=== PATIENT | male | born 1990 | race Two or more races ===

== ENCOUNTER 2018-09-04 07:16 | Emergency (ER) | payer OTHER ==
[2018-09-04 07:26] VITALS: BMI 20.9
[2018-09-04] MEDS ORDERED: METOCLOPRAMIDE HCL INJECTION 10 MG/2 ML VIAL IVPB ONE (07:59)
[2018-09-04] MEDS ORDERED: SODIUM CHLORIDE 0.9% 1000 ML INFUS.BAG IV ONE (07:59)
[2018-09-04] MEDS ORDERED: METOCLOPRAMIDE HCL INJECTION 10 MG/2 ML VIAL ONE (08:18)
[2018-09-04 08:21] LABS: BASO % 0.1 % (0-2.0); HEMATOCRIT 45.5 % (35.4-49); LYMPH % 3.1 % (8-40); MCH 30.4 pg (25.7-33.7); MCHC 35.2 g/dl (32.0-35.9); MEAN CELL VOLUME 86.5 fl (80-96); MEAN PLT VOLUME 8.1 fl (7.5-11.1); MONO % 4.3 % (3.8-10.2); NEUT % 92.5 % (42.8-82.8); PLATELET COUNT 280 K/MM3 (134-434); RBC 5.26 M/mm3 (4.00-5.60); RDW 13.7 % (11.9-15.9)
[2018-09-04] MEDS ORDERED: ONDANSETRON 4 MG/2 ML VIAL IVPUSH ONE (08:43)
[2018-09-04] MEDS ORDERED: morphine CARPU-JECT 4 MG/1 ML DISP.SYRIN IVPUSH ONE (08:43)
--- NOTE | 2018-09-04 08:43 | PDOC ---
History of Present Illness - General Chief Complaint: Nausea/Vomiting Stated Complaint: VOMITING Time Seen by Provider: 09/04/18 07:37 History Source: Patient Exam Limitations: No Limitations - History of Present Illness Initial Comments: 09/04/18 08:44 CHIEF COMPLAINT: Vomiting/diarrhea HISTORY OF PRESENT ILLNESS: This is an otherwise healthy 27-year-old male who presents ambulatory to the emergency department complaining of vomiting, diarrhea, and abdominal pain since morning. He reports approximately 10 episodes each of vomiting and diarrhea. He denies hematemesis or hematochezia, he denies fevers, denies dysuria. He has not traveled or eating in a restaurant recently, but does report eating heavily for the holidays. He does not have any sick contacts. Prior to my evaluation, he was given Reglan and Benadryl for nausea, but still complains of abdominal pain Vital signs on arrival are all within normal limits. REVIEW OF SYSTEMS: GENERAL/CONSTITUTIONAL: No fever or chills. No weakness. No weight change. HEAD, EYES, EARS, NOSE AND THROAT: No change in vision. No ear pain or discharge. No sore throat. CARDIOVASCULAR: No chest pain or palpitations. RESPIRATORY: No cough, wheezing, or shortness of breath. GASTROINTESTINAL: See HPI. GENITOURINARY: No dysuria, frequency, or change in urination. MUSCULOSKELETAL: No joint or muscle swelling or pain. No neck or back pain. SKIN: No rash or easy bruising. NEUROLOGIC: No headache, vertigo, loss of consciousness, or loss of sensation. PSYCHIATRIC: No depression or anxiety. ENDOCRINE: No increased thirst. No abnormal weight change. HEMATOLOGIC/LYMPHATIC: No anemia, easy bleeding, or history of blood clots. ALLERGIC/IMMUNOLOGIC: No hives or skin allergy. No latex allergy. PHYSICAL EXAM: GENERAL: The patient is awake, alert, and fully oriented, in no acute distress. HEAD: Normal with no signs of trauma. ENT: Pupils equal, round and reactive to light, extraocular movements intact, sclera anicteric, conjunctiva clear. Neck supple. Black areas on tongue. LUNGS: Clear to auscultation bilaterally. Normal excursion. No respiratory distress or use of accessory muscles. CV: RRR, S1/S2, no MRG. Cap refill < 2 sec. ABDOMEN: Soft, non-distended, mildly tender to deep palpation in LLQ. EXTREMITIES: Normal range of motion, no edema. NEUROLOGICAL: Normal speech, normal gait. CN II-XII grossly intact. PSYCH: Normal mood, normal affect. SKIN: Warm, dry, normal turgor, no rashes or lesions noted. 09/04/18 08:46 Past History - Past Medical History Allergies/Adverse Reactions: Allergies Allergy/AdvReac Type Severity Reaction Status Date / Time No Known Allergies Allergy Verified 09/04/18 07:24 Home Medications: Ambulatory Orders Ondansetron [Zofran Odt -] 4 mg SL TID PRN #21 od.tablet 09/04/18 COPD: No - Immunization History Immunization Up to Date: No - Suicide/Smoking/Psychosocial Hx Smoking History: Unknown if ever smoked Have you smoked in the past 12 months: No Hx Alcohol Use: No Drug/Substance Use Hx: No Substance Use Type: None *Physical Exam - Vital Signs Last Vital Signs Temp Pulse Resp BP Pulse Ox 98.4 F 89 16 123/70 99 09/04/18 07:24 09/04/18 07:24 09/04/18 07:24 09/04/18 07:24 09/04/18 07:24 Moderate Sedation - Procedure Monitoring Vital Signs: Procedure Monitoring Vital Signs Temperature 98.4 F 09/04/18 07:24 Pulse Rate 89 09/04/18 07:24 Respiratory Rate 16 09/04/18 07:24 Blood Pressure 123/70 09/04/18 07:24 O2 Sat by Pulse Oximetry (%) 99 09/04/18 07:24 ED Treatment Course - LABORATORY CBC & Chemistry Diagram: 09/04/18 08:15 09/04/18 08:15 - ADDITIONAL ORDERS Additional order review: 09/04/18 08:15 RBC 5.26 MCV 86.5 MCHC 35.2 RDW 13.7 MPV 8.1 Neutrophils % 92.5 H Lymphocytes % 3.1 L Monocytes % 4.3 Eosinophils % 0.0 Basophils % 0.1 - Medications Given in the ED: ED Medications Discontinued Medications Generic Name Dose Route Start Last Admin Trade Name Freq PRN Reason Stop Dose Admin Diphenhydramine HCl 25 mg 09/04/18 07:59 09/04/18 08:24 Benadryl Injection - IVPB 09/04/18 08:00 25 mg ONCE ONE Administration Metoclopramide HCl 10 mg 09/04/18 07:59 09/04/18 08:24 Reglan Injection - IVPB 09/04/18 08:00 10 mg ONCE ONE Administration Sodium Chloride 1,000 ml 09/04/18 07:59 09/04/18 08:24 Normal Saline - IV 09/04/18 08:00 1,000 ml ONCE ONE Administration Medical Decision Making - Medical Decision Making 09/04/18 08:48 A/P: 27-year-old male with vomiting/diarrhea and left lower quadrant abdominal pain. 1. Labs including CBC, CMP, lipase, UA 2. IV fluids 3. Add Zofran for nausea, morphine for persistent pain 4. Repeat abdominal exam 09/04/18 09:45 Patient re-examined and still with 8/10 LLQ pain. WBC is 17.0. Will obtain CTAP. 09/04/18 11:29 CT demonstrates no acute pathology. Pain improved, patient tolerating PO. *DC/Admit/Observation/Transfer Diagnosis at time of Disposition: Vomiting and diarrhea Abdominal pain Qualifiers: Abdominal location: left lower quadrant Qualified Code(s): R10.32 - Left lower quadrant pain - Discharge Dispostion Disposition: HOME Condition at time of disposition: Improved Decision to Admit order: No - Prescriptions Prescriptions: Ondansetron [Zofran Odt -] 4 mg SL TID PRN #21 od.tablet PRN Reason: nausea/vomiting - Referrals Referrals: Cesar Escudero MD [Primary Care Provider] - - Patient Instructions Printed Discharge Instructions: DI for Viral Gastroenteritis -- Adult, [place] Diet Additional Instructions: -Rest and stay well-hydrated. -Slowly advance your diet (instructions enclosed). -Follow up with Dr. Escudero early next week. -Return here if your pain is worsening, if you are unable to keep down fluids, or for any other concerning symptoms. - Post Discharge Activity
[2018-09-04 08:49] LABS: ALBUMIN 4.6 g/dl (3.4-5.0); ALK PHOS 73 U/L (45-117); ANION GAP 9 MMOL/L (8-16); BILIRUBIN,TOTAL 0.8 mg/dL (0.2-1); BLOOD UREA NITROGEN 17 mg/dL (7-18); CALCIUM 9.7 mg/dL (8.5-10.1); CHLORIDE 103 mmol/L (98-107); CO2 25 mmol/L (21-32); CREATININE 1.3 mg/dL (0.55-1.3); GLUCOSE,RANDOM 124 mg/dL (74-106); POTASSIUM 4.8 mmol/L (3.5-5.1); SGOT/AST 18 U/L (15-37); SGPT/ALT 23 U/L (13-61); SODIUM 136 mmol/L (136-145); TOT PROT 8.6 g/dl (6.4-8.2)
[2018-09-04] MEDS ORDERED: ONDANSETRON 4 MG/2 ML VIAL ONE (08:51)
[2018-09-04] MEDS ORDERED: morphine SULFATE 4 MG/ML VIAL ONE (08:51)
[2018-09-04 09:49] LABS: ACANTHOCYTES 1+; ANISOCYTOSIS 1+; MACROCYTOSIS 0; OVALOCYTE 1+; PLATELET ESTIMATE NORMAL; TEAR DROP CELLS 1+
[2018-09-04 09:59] LABS: LIPASE 99 U/L (73-393)
[2018-09-04 12:00] VITALS: BP 132/72; PULSE 65; TEMP 982
== END 2018-09-04 11:58 | disposition home or self-care (01) ==
LOC: JER 07:16
PROC: 3E033NZ Introduction of Analgesics, Hypnotics, Sedatives into Peripheral Vein, Percutaneous Approach (ICD-10-PCS; principal; 2018-09-04)
PROC: 3E033GC Introduction of Other Therapeutic Substance into Peripheral Vein, Percutaneous Approach (ICD-10-PCS; 2018-09-04)
PROC: 3E033GC Introduction of Other Therapeutic Substance into Peripheral Vein, Percutaneous Approach (ICD-10-PCS; 2018-09-04)
PROC: 3E033GC Introduction of Other Therapeutic Substance into Peripheral Vein, Percutaneous Approach (ICD-10-PCS; 2018-09-04)
DX: A08.4 Viral intestinal infection, unspecified (principal); B97.89 Other viral agents as the cause of diseases classified elsewhere
CPT/HCPCS: 36415; 74177-TC; 80053; 83690; 85025; 99281-25; J7030

== ENCOUNTER 2018-10-05 12:47 | Emergency (ER) | payer OTHER ==
[2018-10-05 13:09] VITALS: BP 125/70; PULSE 90; TEMP 100.1; BMI 18.7
[2018-10-05] MEDS ORDERED: ACETAMINOPHEN 325 MG TABLET (FP) PO ONE (14:02)
[2018-10-05] MEDS ORDERED: ACETAMINOPHEN 325 MG TABLET (FP) ONE (14:03)
--- NOTE | 2018-10-05 14:12 | PDOC ---
History of Present Illness - General Chief Complaint: Cold Symptoms Stated Complaint: VOMIT / FEVER Time Seen by Provider: 10/05/18 13:17 History Source: Patient - History of Present Illness Timing/Duration: reports: other Past History - Past Medical History Allergies/Adverse Reactions: Allergies Allergy/AdvReac Type Severity Reaction Status Date / Time No Known Allergies Allergy Verified 09/04/18 07:24 Home Medications: Ambulatory Orders Ondansetron [Zofran Odt -] 4 mg SL TID PRN #21 od.tablet 09/04/18 COPD: No Dialysis: No Hypercholesterolemia: No - Surgical History Cholecystectomy: No - Immunization History Immunization Up to Date: No - Suicide/Smoking/Psychosocial Hx Smoking History: Unknown if ever smoked Have you smoked in the past 12 months: No Information on smoking cessation initiated: No Hx Alcohol Use: No Drug/Substance Use Hx: No Substance Use Type: None Review of Systems - Review of Systems Constitutional: Yes: Fever Respiratory: Yes: Cough. No: Shortness of Breath Cardiac (ROS): No: Chest Pain ABD/GI: Yes: Vomiting. No: Diarrhea, Abdominal cramping *Physical Exam - Vital Signs Last Vital Signs Temp Pulse Resp BP Pulse Ox 100.1 F H 90 18 125/70 99 10/05/18 13:06 10/05/18 13:06 10/05/18 13:06 10/05/18 13:06 10/05/18 13:06 - Physical Exam Comments: 10/05/18 14:21 reid mildly uncomfortable General Appearance: Yes: Appropriately Dressed HEENT: positive: Normal ENT Inspection, Normal Voice, TMs Normal, Pharynx Normal. negative: Scleral Icterus (R), Scleral Icterus (L) Neck: positive: Supple. negative: Lymphadenopathy (R), Lymphadenopathy (L) Respiratory/Chest: positive: Lungs Clear, Normal Breath Sounds. negative: Respiratory Distress Cardiovascular: positive: Regular Rate, S1, S2 Gastrointestinal/Abdominal: positive: Soft. negative: Tender Integumentary: positive: Dry, Warm Neurologic: positive: Fully Oriented, Alert, Normal Mood/Affect Moderate Sedation - Procedure Monitoring Vital Signs: Procedure Monitoring Vital Signs Temperature 100.1 F H 10/05/18 13:06 Pulse Rate 90 10/05/18 13:06 Respiratory Rate 18 10/05/18 13:06 Blood Pressure 125/70 10/05/18 13:06 O2 Sat by Pulse Oximetry (%) 99 10/05/18 13:06 ED Treatment Course - RADIOLOGY Radiology Studies Ordered: Category Date Time Status CHEST PA & LAT [RAD] Stat Radiology 10/05/18 14:02 Ordered Medical Decision Making - Medical Decision Making 10/05/18 14:12 27 yo M, denies pmhx, here w/ dry cough, n/v, fever and malaise x 3-4 days. Sxs started while incarcerated per pt. No hemoptysis, SOB, CP or body aches See exam Viral illness R/o flu/strep/pna given recent incarceration -dose of tylenol for low grade fever 10/05/18 14:44 CXR, flu and strep neg. Dc w/ supportive tx *DC/Admit/Observation/Transfer Diagnosis at time of Disposition: Viral illness - Discharge Dispostion Disposition: HOME Condition at time of disposition: Stable - Referrals Referrals: Cesar Escudero MD [Primary Care Provider] - - Patient Instructions Printed Discharge Instructions: DI for Viral Syndrome Additional Instructions: Your chest x-ray fluid and strep test were negative. You have a viral illness that should improve in time. In the meanwhile, rest, drink plenty of fluids and take Motrin or Tylenol as needed for pain and/or fever - Post Discharge Activity
== END 2018-10-05 14:51 | disposition home or self-care (01) ==
LOC: JERFT 12:47
DX: B34.9 Viral infection, unspecified (principal)
CPT/HCPCS: 71046-TC-FY; 87070; 87804; 87880; 99281-25

== ENCOUNTER 2018-11-24 14:30 | Emergency (ER) | payer OTHER ==
[2018-11-24 15:02] VITALS: BP 115/76; PULSE 83; TEMP 98.3; BMI 19.8
--- NOTE | 2018-11-24 15:03 | PDOC ---
Rapid Medical Evaluation Chief Complaint: Sore Throat Time Seen by Provider: 11/24/18 15:00 Medical Evaluation: Allergies Allergy/AdvReac Type Severity Reaction Status Date / Time No Known Allergies Allergy Verified 11/24/18 15:00 11/24/18 15:01 I have performed a brief in-person evaluation of this patient. The patient presents with a chief compliant of sorethroat x 2-3 days Complaining of pain with swallowing Pertinent physical exam findings NAD +enlarged, erythematous tonsils, + exudate unlabored breathing I have ordered the following rapid strep, throat culture The patient will proceed to the ED for further evaluation. Discharge Disposition - Diagnosis Sorethroat - Referrals - Patient Instructions - Post Discharge Activity
[2018-11-24] MEDS ORDERED: DEXAMETHASONE LIQUID 0.5 MG/5 ML 240 ML BULK BOTTLE PO ONE (15:34)
--- NOTE | 2018-11-24 15:34 | PDOC ---
History of Present Illness - General Chief Complaint: Sore Throat Stated Complaint: SORE THROAT Time Seen by Provider: 11/24/18 15:00 - History of Present Illness Initial Comments: 11/24/18 15:33 28-year-old male without comorbidities presents for evaluation of sore throat fever chills night sweats 3 days Past History - Past Medical History Allergies/Adverse Reactions: Allergies Allergy/AdvReac Type Severity Reaction Status Date / Time No Known Allergies Allergy Verified 11/24/18 15:00 Home Medications: Ambulatory Orders Penicillin V Potassium [Pen Vee K -] 500 mg PO QID #40 tablet 11/24/18 COPD: No Dialysis: No Hypercholesterolemia: No - Surgical History Cholecystectomy: No - Immunization History Immunization Up to Date: No - Suicide/Smoking/Psychosocial Hx Smoking History: Never smoked Have you smoked in the past 12 months: No Hx Alcohol Use: No Drug/Substance Use Hx: Yes (MARIJUANA) Substance Use Type: None Review of Systems - Review of Systems Constitutional: Yes: See HPI, Chills, Fever, Malaise, Night Sweats HEENTM: Yes: Throat Pain, Difficulty Swallowing *Physical Exam - Vital Signs Last Vital Signs Temp Pulse Resp BP Pulse Ox 98.3 F 83 16 115/76 98 11/24/18 15:00 11/24/18 15:00 11/24/18 15:00 11/24/18 15:00 11/24/18 15:00 - Physical Exam Comments: 11/24/18 15:33 HEAD: NC/AT EYES: Conjuntiva clear Ears: Canals and TM's normal NOSE: No d/c THROAT: Moist mucous membrances, oral pharanx erythemic with exudate, uvula midline NECK: Supple without adenopathy CARDIAC: S1 S2 LUNGS: CTA Full and Equal breath sounds ABDOMEN: Soft NT ND MS: Full ROM in all joints without edema NEUROLOGIC: No gross sensory or motor deficits, NVID SKIN: Normal color and temperature no lesions or rashes Moderate Sedation - Procedure Monitoring Vital Signs: Procedure Monitoring Vital Signs Temperature 98.3 F 11/24/18 15:00 Pulse Rate 83 11/24/18 15:00 Respiratory Rate 16 11/24/18 15:00 Blood Pressure 115/76 11/24/18 15:00 O2 Sat by Pulse Oximetry (%) 98 11/24/18 15:00 *DC/Admit/Observation/Transfer Diagnosis at time of Disposition: Sorethroat, Strep pharyngitis - Discharge Dispostion Disposition: HOME Condition at time of disposition: Stable Decision to Admit order: No - Prescriptions Prescriptions: Penicillin V Potassium [Pen Vee K -] 500 mg PO QID #40 tablet - Referrals Referrals: Mahesh Ramon [Non Staff, Medical] - - Patient Instructions Printed Discharge Instructions: Strep Throat, DI for Strep Throat Additional Instructions: Please take the antibiotics as directed. Return to the emergency room should symptoms worsen or go unresolved and follow-up with internal medicine in one to 2 days for further evaluation and treatment options. He may take Tylenol as directed for pain. He should not require Motrin. He will given a dose of a long- acting steroid in the emergency room. He must finish all the antibiotics as directed. - Post Discharge Activity
[2018-11-24] MEDS ORDERED: DEXAMETHASONE SOD PHOSPHATE 10 MG/1 ML VIAL ONE (15:35)
== END 2018-11-24 15:57 | disposition home or self-care (01) ==
LOC: JERFT 14:30
DX: J02.0 Streptococcal pharyngitis (principal); B95.0 Streptococcus, group A, as the cause of diseases classified elsewhere
CPT/HCPCS: 87880; 99281-25

== ENCOUNTER 2019-02-01 10:07 | Emergency (ER) | payer OTHER | END 2019-02-01 12:00 | disposition home or self-care (01) | LOC: JER 10:07 ==

== ENCOUNTER 2019-06-30 06:31 | Emergency (ER) | payer OTHER ==
[2019-06-30 07:01] VITALS: BP 133/82; PULSE 81; TEMP 98.7; BMI 20.4
[2019-06-30] MEDS ORDERED: DEXAMETHASONE SOD PHOSPHATE 4 MG/1 ML VIAL IM ONE (07:27)
[2019-06-30] MEDS ORDERED: KETOROLAC TROMETHAMINE 30 MG/1 ML VIAL IM ONE (07:30)
[2019-06-30] MEDS ORDERED: DEXAMETHASONE SOD PHOSPHATE 10 MG/1 ML VIAL ONE (07:36)
[2019-06-30] MEDS ORDERED: KETOROLAC TROMETHAMINE 30 MG/1 ML VIAL ONE (07:36)
--- NOTE | 2019-06-30 07:42 | PDOC ---
History of Present Illness - General Chief Complaint: Sore Throat Stated Complaint: SORE THROAT Time Seen by Provider: 06/30/19 07:18 - History of Present Illness Initial Comments: 06/30/19 07:37 28m with no pmh presents to the Ed with sore throat and fever for the past 3-4 days. Has some pain upon swallowing with mildly muffled voice. Concerned because he's in close proximity to his daughter. Measured his temperature at 101.3 yesterday and took ibuprofen last night. Now afebrile. Past History - Past Medical History Allergies/Adverse Reactions: Allergies Allergy/AdvReac Type Severity Reaction Status Date / Time No Known Allergies Allergy Verified 06/30/19 06:58 Home Medications: Ambulatory Orders Amoxicillin/Potassium Clav [Augmentin 875-125 Tablet] 1 each PO BID 7 Days #14 tablet 06/30/19 COPD: No Dialysis: No Hypercholesterolemia: No Psychiatric Problems: Yes (aderol, ritilin) - Surgical History Cholecystectomy: No - Immunization History Immunization Up to Date: No - Psycho Social/Smoking Cessation Hx Smoking History: Never smoked Have you smoked in the past 12 months: No Hx Alcohol Use: No Drug/Substance Use Hx: No Substance Use Type: None Review of Systems - Review of Systems Able to Perform ROS?: Yes Is the patient limited Citizen Of [place] proficient: No Constitutional: Yes: See HPI HEENTM: Yes: Throat Pain, Throat Swelling, Difficulty Swallowing. No: Mouth Pain, Dental Problems, Mouth Swelling Respiratory: No: Symptoms reported Cardiac (ROS): No: Symptoms Reported ABD/GI: No: Symptoms Reported : No: Symptoms Reported All Other Systems: Reviewed and Negative *Physical Exam - Vital Signs Last Vital Signs Temp Pulse Resp BP Pulse Ox 98.7 F 81 15 133/82 96 06/30/19 06:31 06/30/19 06:31 06/30/19 06:31 06/30/19 06:31 06/30/19 06:31 - Physical Exam General Appearance: Yes: Nourished, Appropriately Dressed, Apparent Distress HEENT: positive: EOMI, SARAH, Muffled/Hoarse voice, Pharyngeal Erythema, Tonsillar Exudate, Tonsillar Erythema. negative: Normal ENT Inspection Respiratory/Chest: positive: Lungs Clear. negative: Chest Tender Cardiovascular: positive: Regular Rhythm, Regular Rate, S1, S2 Gastrointestinal/Abdominal: positive: Normal Bowel Sounds, Flat, Soft. negative : Tender Musculoskeletal: positive: Normal Inspection. negative: CVA Tenderness Extremity: positive: Normal Capillary Refill, Normal Inspection, Normal Range of Motion Neurologic: positive: Fully Oriented, Alert, Normal Mood/Affect, Normal Response , Motor Strength 5/5 Medical Decision Making - Medical Decision Making 06/30/19 07:43 28m with sore throat and pharyngeal erythema/exudate consistent with pharyngitis viral vs bacterial. Sending rapid strep to decide whether to treat with abx. In the meantime giving steroid and toradol for pain/swelling. 06/30/19 08:22 Positive strep pharyngitis. Due to recurrent infections, will treat with Augmentin. Ok to dc with contact and return precautions Discharge - Discharge Information Problems reviewed: Yes Clinical Impression/Diagnosis: Strep pharyngitis Condition: Fair Disposition: HOME - Admission No - Additional Discharge Information Prescriptions: Amoxicillin/Potassium Clav [Augmentin 875-125 Tablet] 1 each PO BID 7 Days #14 tablet - Follow up/Referral Referrals: Cesar Escudero MD [Primary Care Provider] - - Patient Discharge Instructions Patient Printed Discharge Instructions: DI for Strep Throat Additional Instructions: acupressurist your prescription from the pharmacy. Come back to the emergency department for any new, worsening or concerning symptom. Follow up with your primary care physician within the next 3 days. - Post Discharge Activity
[2019-06-30] MEDS ORDERED: AMOX TR/POT CLAV 875MG/125MG TABLETS (FP) PO ONE (08:18)
[2019-06-30] MEDS ORDERED: AMOX TR/POT CLAV 875MG/125MG TABLETS (FP) ONE (08:28)
--- NOTE | 2019-06-30 08:30 | PDOC ---
Attending Attestation - Resident Resident Name: Ian Morel - ED Attending Attestation I have performed the following: I have examined & evaluated the patient, The case was reviewed & discussed with the resident, I agree w/resident's findings & plan, Exceptions are as noted - HPI HPI: 06/30/19 08:26 28 years old with past medical history significant for recurrent strep throat presents to the emergency department with recurrence of sore throat pharyngitis pain difficulty swallowing symptoms are moderate persistent constant exacerbated by swallowing no difficulty breathing no alleviating factors. - Physicial Exam PE: 06/30/19 08:27 ROS: A complete review of 10 out of 10 review of systems is taken and is negative apart from what is previously mentioned below and in the HPI. Vitals: Triage Vital signs reviewed General Appearance: No acute distress, well nourished well developed, Head: Atraumatic, Bilateral tonsillar exudate and throat: Posterior oropharynx without erythema, mucous membranes moist, Neck: Supple; no Nucal rigidity Chest Wall: Nontender Cardiac: Regular rate and rhythym, no murmurs, no rubs, no gallops, Lungs: Clear to auscultation bilateral, good air movement bilaterally, Extremities: Full range of motion to all extremities, no cyanosis, clubbing, or edema Psych: Normal mood, normal affect - Medical Decision Making 06/30/19 08:29 History and examination consistent with strep pharyngitis we will treat with Augmentin Decadron and Toradol given in the emergency department for pain Patient feels much better he will follow-up with ENT. Findings, the need for follow-up, strict return instructions discussed with patient.
== END 2019-06-30 08:43 | disposition home or self-care (01) ==
LOC: JER 06:31
PROC: 3E0233Z Introduction of Anti-inflammatory into Muscle, Percutaneous Approach (ICD-10-PCS; principal; 2019-06-30)
PROC: 3E0233Z Introduction of Anti-inflammatory into Muscle, Percutaneous Approach (ICD-10-PCS; 2019-06-30)
DX: J02.0 Streptococcal pharyngitis (principal); B95.0 Streptococcus, group A, as the cause of diseases classified elsewhere; F99 Mental disorder, not otherwise specified
CPT/HCPCS: 87880; 96372; 99282-25